=== PATIENT | female | born 1985 | race Caucasian/White ===

== ENCOUNTER 2022-03-26 07:33 | Emergency (ER) | payer OTHER, SELFPAY ==
--- NOTE | ~2022-03-26 | CT_ITS ---
EXAMINATION: CT HEAD WITHOUT CONTRAST CLINICAL INFORMATION: Syncope. COMPARISON: None TECHNIQUE: Contiguous axial imaging was performed from the skull base to vertex without intravenous administration of contrast. Coronal and sagittal reformatted images were obtained. This CT examination was performed using dose optimization techniques as appropriate, variously including the following: *Automated exposure control *Adjustment of mA and/or kV according to patient size (this includes techniques or standardized protocols for targeted exams where dose is matched to indication/reason for exam; i.e. extremities or head) *Use of iterative reconstruction technique DLP: 645 mGy-cm FINDINGS: The cortical sulci are normal. The lateral ventricles are symmetrical. The third and fourth ventricles are in their normal midline position. The basilar and prepontine cisterns are unremarkable. There is no acute intra or extracerebral abnormality. There is no mass effect or midline shift. Sections through the bony calvarium are unremarkable. The paranasal sinuses are clear. The bony orbits and orbital contents are unremarkable. CT/CT head/brain wo IV con IMPRESSION: No acute intracranial pathology.
--- NOTE | ~2022-03-26 | XR_ITS ---
EXAMINATION: XR CHEST CLINICAL INFORMATION: Chest pain COMPARISON: None TECHNIQUE: Frontal view of the chest was obtained. FINDINGS: No significant abnormality is noted involving the heart, lungs, mediastinum, bony thorax or soft tissues. XR/XR chest 1V IMPRESSION: Unremarkable examination.
--- NOTE | 2022-03-26 07:40 | ECG_ITS ---
Test Reason : SYNCOPE Blood Pressure : / mmHG Vent. Rate : 078 BPM Atrial Rate : 078 BPM P-R Int : 130 ms QRS Dur : 084 ms QT Int : 386 ms P-R-T Axes : 060 059 034 degrees QTc Int : 440 ms Normal sinus rhythm with sinus arrhythmia Normal ECG No previous ECGs available Referred By: Wilber Ortiz Electronically Signed By:TUCKER BENSON MD
[2022-03-26 07:41] VITALS: BP 101/66; BP 118/76; PULSE 85; PULSE 86; RESP 16; TEMP 36.9; O2SAT 96; O2SAT 98; BMI 27.1
--- NOTE | 2022-03-26 07:41 | ED_ITS ---
HPI - Syncope General Chief Complaint: Syncope Stated Complaint: dizziness, syncope Time Seen by Provider: 03/26/22 07:40 Source: patient Mode of arrival: EMS Limitations: no limitations History of Present Illness HPI narrative: This is a 36 years old female presented via ambulance after a syncopal episode. She has history of alcohol abuse she is recovering, she is in [facility], she got up this morning like a medicine for depression id she fell to the ground. No LOC she is awake and alert now he has no complaint at this time . She states that last night she took prazosin in the past she a problem with the prazosin which lower her blood pressure. complaint: loss of consciousness Onset (ago): hour(s) (2) Prodromal symptoms: lightheaded Injuries sustained associated with event: none Current symptoms: none Related Data Allergies Allergy/AdvReac Type Severity Reaction Status Date / Time No Known Allergies Allergy Unverified 01/02/20 19:49 [No Known Allergies*] Review of Systems Constitutional: Constitutional: Reports no additional constitutional complaints Eyes: Eyes: Reports no additional eye complaints Cardiovascular: Cardiovascular: Reports no additional cardiovascular complaints Respiratory: Respiratory: Reports no additional respiratory complaints Genitourinary: Genitourinary: Reports no additional female genitourinary complaints [facility] Past Medical History [facility] Narrative: Alcohol abuse Social History Social History Alcohol intake: former Smoked in Last 30 Days: Yes Advance Directives: No Advance Directives Information Provided: No Patient : No Physical Exam Vital Signs: Vital Signs: Last Vital Signs Temp 98.4 F 03/26/22 08:08 Pulse 90 03/26/22 09:40 Resp 18 03/26/22 09:40 BP 95/57 L 03/26/22 09:40 Pulse Ox 98 03/26/22 09:40 O2 Del Method 03/26/22 09:40 BMI result Body Mass Index 27.1 Const: General: cooperative, healthy appearing, comfortable, no acute distress, well developed, alert, awake and Physically active Nutritional Appearance: well nourished Orientation/consciousness: patient oriented x3 Limitations: no limitations HEENT: Head: Yes normal to inspection Ears: hearing grossly normal bilaterally General nose exam: Normal external nose present Face and sinus: Yes normal facial exam Mouth: Normal oral and palatal mucosa present Throat: Yes posterior oropharynx normal Neck: Neck: Yes normal visual inspection and Yes full ROM Chest: Chest palpation & inspection: normal inspection of the chest Resp: Effort & Inspection: normal respiratory effort Auscultation: clear to auscultation bilaterally Cardio: Jugular venous distension: no JVD Rate: regular rate Rhythm: regular rhythm GI: Inspection: Yes normal to inspection Palpation (GI): Soft to palpation, not firm, nontender and no guarding Auscultation: normal bowel sounds : General: Yes no CVA tenderness Back/Spine/Pelvis: Back: no CVA tenderness Skin: General skin exam: no rashes or lesions noted Lesions: no lesions Rashes: no rashes Neuro: General: patient oriented x3 Course Reevaluation(s) Reevaluation #1: Doing well no symptoms work negative including CT of the head, syncope is most likely related to the prazosin, shared decision making the patient she is comfortable to go home she will lower the the prazosin John, Medications Administered Discontinued Medications Generic Name Dose Route Start Last Admin Trade Name Freq PRN Reason Stop Dose Admin Sodium Chloride 1,000 mls @ 999 mls/hr 03/26/22 07:45 03/26/22 09:36 Ns IVCONT 03/26/22 08:45 Infused .Q1H1M ESTRELLITA Infusion Medical Decision Making Medical Decision Making [facility] Narrative: Healthy 36 years old female with the alcohol abuse history in recovery presented with a syncopal episode she is asymptomatic right now most likely this was due to prazosine, will get any way labs EKG reassessed Differential Diagnoses: Differential diagnosis (syncope/alcohol withdrawal/seizure) Consideration of admission/observation: Consideration of Admission/Observation (I consider admission for observation in telemetry because of the syncope but she is healthy lady negative troponin) Lab Attestation: I reviewed the patient's lab results. Independent interpretation of EKG, rhythm strip, radiology study: Independent interp EKG,rhythm strip, radiology study I performed an independent interpretation of the: EKG My interpretation is EGD reviewed by me normal sinus rhythm rate [address]-T changes Chronic conditions affecting care (e.g., diabetes, HTN): Chronic conditions affecting care (e.g., diabetes, HTN) Additional Comments: Alcohol use disorder Discharge Plan Discharge Clinical Impression: Vasovagal syncope Patient Disposition: Home, Self-Care Instructions: Syncope (ED) Additional Instructions: Drink plenty of fluids, hold the prazosin, return if you worse
[2022-03-26] MEDS: 0.9 % Sodium Chloride 1,000 ML 999 ML IVCONT (08:07)
[2022-03-26 08:08] VITALS: BP 101/66; PULSE 85; RESP 18; TEMP 36.9; O2SAT 98
[2022-03-26 08:09] LABS: MANUAL DIFF FLAG NO
[2022-03-26 08:10] LABS: Basophils Percent Auto 0.2 % (0-2); Eosinophils Absolute Auto 0.3 X10*3/uL (0.0-0.4); Hematocrit 37.5 % (37.0-47.0); Hemoglobin 12.2 g/dl (12.0-16.0); Imm Gran Abs Auto 0.01 X10*3/uL (0.00-0.03); Imm Gran Pct Auto 0.2 % (0.0-0.4); Lymphocytes Absolute Auto 2.2 X10*3/uL (1.2-4.9); Lymphocytes Percent Auto 46.4 % (20-40); Mean Corpuscular HGB Conc 32.5 g/dl (31.0-35.0); Mean Corpuscular Hemoglobin 29.9 pg (27.0-33.0); Mean Corpuscular Volume 91.9 fL (80.0-98.0); Mean Platelet Volume 9.2 fL (9.4-12.3); Monocytes Absolute Auto 0.5 X10*3/uL (0.1-1.2); Monocytes Percent Auto 9.5 % (2-11); Neutrophils Absolute Auto 1.8 x10*3/uL (2.0-8.3); Neutrophils Percent Auto 37.7 % (45-73); Platelet Count 246 X10*3/uL (160-400); Red Blood Count 4.08 X10*6/uL (4.20-5.50); Red Cell Distribution Width 12.6 % (11.0-16.0); White Blood Count 4.8 X10*3/uL (4.8-10.8)
--- NOTE | 2022-03-26 08:12 | PC.NURSE ---
patient a/ox4 . bull . heart rate regular 80 beats per minute . breathing even and unlabored . lungs clear throughout . skin pink warm and dry . abdomen soft not tender , positive bowel sounds throughout . IV placed in right A.C normal saline started as ordered by provider . labs obtained and sent . EKG obtained . patient on cargo bracer . patient denies any lightheadedness or dizziness at this time . presented to Ed after syncope episodes . reports she feels it was changing positions to fast , patient [facility] and was running late for medication pass and got out of bed fast . and feels like she is dehydrated due to medication and lack of hydration . patient is aware of plan of care .
[2022-03-26 08:22] LABS: COVID-19 Test Negative (Negative); IDNOW Serial# 16C4AD1C
[2022-03-26 08:26] LABS: IDNOW Serial# BCCEAD1C; Influenza A Negative (Negative); Influenza B2 Negative (Negative)
[2022-03-26 08:37] LABS: Troponin-I High Sensitivity < 3.5 ng/L (<3.5-17.0)
[2022-03-26 08:44] LABS: Alanine Aminotransferase 12 U/L (0-31); Albumin Level 3.8 g/dL (3.5-5.0); Alkaline Phosphatase 39 U/L (39-117); Anion Gap 11 (12-20); Aspartate Amino Transferase 16 U/L (5-31); Bilirubin Total 0.3 mg/dL (0.0-1.0); Blood Urea Nitrogen 9 mg/dL (9-16); Carbon Dioxide 24 mmol/L (22-29); Chloride 108 mmol/L (96-108); Creatinine Clr Calc Pharmacy 93.7; Estimated Glomerular Filt Rate > 60; Glucose Random 95 mg/dL (60-115); HCG Quantitative < 2 mIU/mL; Potassium 4.2 mmol/L (3.3-5.1); Sodium 139 mmol/L (135-145)
[2022-03-26 09:40] VITALS: BP 95/57; PULSE 90; RESP 18; O2SAT 98
--- NOTE | 2022-03-26 09:42 | PC.NURSE ---
Patient a/ox4 . finished 1liter normal saline as ordered . VSS hypotensive at 95/57 . is asymptomatic . denies any dizziness or lightheadness . Provider Dr. Ortiz aware . Will order another liter of normal saline to be administered . patient aware of plan of care .
[2022-03-26] MEDS: 0.9 % Sodium Chloride 1,000 ML 999 ML IV (10:30)
[2022-03-26 11:56] VITALS: BP 112/73; PULSE 90; RESP 20; O2SAT 99
--- NOTE | 2022-03-26 12:07 | PC.NURSE ---
patient a/o x4 . VSS . went over discharge instructions as ordered by provider . patient given contact information to obtain a primary care .patient to return if symptoms worsen . no questions at this time .
== END 2022-03-26 12:11 | disposition home or self-care (01) ==
PROVIDERS: Emergency Provider Emergency Medicine
DX: R55 Syncope and collapse (principal); Z20.822 Contact with and (suspected) exposure to COVID-19; F10.10 Alcohol abuse, uncomplicated; Y90.9 Presence of alcohol in blood, level not specified; E11.9 Type 2 diabetes mellitus without complications; I10 Essential (primary) hypertension; Z79.899 Other long term (current) drug therapy
CPT/HCPCS: 70450; 71045; 80053; 84484; 84702; 85025; 87502; 87635; 93005; 96360; 96361; 99284; 99285

== ENCOUNTER 2022-07-29 15:37 | Emergency (ER) | payer MEDICAID, SELFPAY ==
--- NOTE | ~2022-07-29 | XR_ITS ---
EXAMINATION: XR CHEST CLINICAL INFORMATION: Dizziness COMPARISON: 03/26/2022 TECHNIQUE: 2 views of the chest were obtained. FINDINGS: Some new minimal atelectasis is present in the lingula. No other significant abnormality is noted involving the heart, lungs, mediastinum, bony thorax or soft tissues. XR/XR chest 2V IMPRESSION: No acute intrathoracic disease. Lingular atelectasis.
--- NOTE | ~2022-07-29 | CT_ITS ---
EXAMINATION: CT HEAD WITHOUT CONTRAST CLINICAL INFORMATION: Dizziness COMPARISON: CT 03/26/2022. TECHNIQUE: Contiguous axial imaging was performed from the skull base to vertex without intravenous administration of contrast. This CT examination was performed using dose optimization techniques as appropriate, variously including the following: *Automated exposure control *Adjustment of mA and/or kV according to patient size (this includes techniques or standardized protocols for targeted exams where dose is matched to indication/reason for exam; i.e. extremities or head) *Use of iterative reconstruction technique DLP: 598 mGy-cm FINDINGS: There is no evidence of acute intracranial hemorrhage or territorial infarction. No abnormal mass effect or midline shift is seen. [place] to white matter differentiation is well preserved. No extra-axial fluid collections are identified. The ventricles are normal in size. No abnormal attenuation in the brain parenchyma. No acute calvarial fracture.. Right maxillary sinus partial opacification and fluid. Remainder of the paranasal sinuses and mastoid air cells are well-aerated. CT/CT head/brain wo IV con IMPRESSION: No CT evidence of acute intracranial hemorrhage or edematous territorial infarction.
--- NOTE | 2022-07-29 15:42 | ECG_ITS ---
Test Reason : PALPITATIONS Blood Pressure : / mmHG Vent. Rate : 108 BPM Atrial Rate : 108 BPM P-R Int : 116 ms QRS Dur : 072 ms QT Int : 324 ms P-R-T Axes : 072 073 032 degrees QTc Int : 434 ms Sinus tachycardia Possible Left atrial enlargement Borderline ECG When compared with ECG of 26-MAR-2022 07:48, No significant change was found Referred By: Generic ED Physician Electronically Signed By:TUCKER BENSON MD
[2022-07-29 16:10] VITALS: BP 126/81; PULSE 112; RESP 16; TEMP 36.4; O2SAT 98; BMI 26.5
--- NOTE | 2022-07-29 18:29 | ED_ITS ---
HPI - General Adult General Chief complaint: Dizziness <NATALIE Velazquez - Last Filed: 07/29/22 18:29> Stated complaint: Dizziness/Palpitations <NATALIE Velazquez - Last Filed: 07/29/22 18:29> Time Seen by Provider: 07/29/22 22:23 <NATALIE Velazquez - Last Filed: 07/29/22 18:29> Source: patient <Yonis Larson MD - Last Filed: 07/30/22 07:13> Mode of arrival: ambulatory <Yonis Larson MD - Last Filed: 07/30/22 07:13> Limitations: no limitations <Yonis Larson MD - Last Filed: 07/30/22 07:13> History of Present Illness HPI narrative: History of dizziness/lightheadedness episodes patient is standing for last 1 year off and on got worse in last 2 weeks patient also depression anxiety does not feel dizzy and anxious at this time earlier prior to arrival patient noticed her heart was beating fast when she was standing <Yonis Larson MD - Last Filed: 07/30/22 07:13> Related Data Home medications: Previous Rx's Medication Instructions Recorded metoprolol tartrate 25 mg tablet 12.5 mg PO BID #30 tabs 07/29/22 <NATALIE Velazquez - Last Filed: 07/29/22 18:29> Allergies/adverse reactions: Allergies Allergy/AdvReac Type Severity Reaction Status Date / Time No Known Allergies Allergy Verified 07/29/22 16:12 [No Known Allergies*] <NATALIE Velazquez - Last Filed: 07/29/22 18:29> Review of Systems 2 Review of Systems: Yes all other systems are reviewed and are negative <Yonis Larson MD - Last Filed: 07/30/22 07:13> [facility] Social History Social History: Social History Alcohol intake: former Advance Directives: No Advance Directives Information Provided: No <NATALIE Velazquez - Last Filed: 07/29/22 18:29> Physical Exam ED Vital Signs: Vital Signs - 24 hr 07/29/22 16:10 07/29/22 22:48 07/29/22 23:01 Temperature 97.6 F 98 F Pulse Rate 112 H 95 95 Respiratory Rate 16 18 Blood Pressure 126/81 122/74 122/74 Pulse Oximetry 98 98 Oxygen Delivery Method Room Air Room Air 07/29/22 23:03 07/29/22 23:03 Temperature Pulse Rate 121 H 118 H Respiratory Rate Blood Pressure 117/85 117/88 Pulse Oximetry Oxygen Delivery Method BMI result Body Mass Index 26.5 <NATALIE Velazquez - Last Filed: 07/29/22 18:29> Vital Signs - 24 hr 07/29/22 16:10 07/29/22 22:48 07/29/22 23:01 Temperature 97.6 F 98 F Pulse Rate 112 H 95 95 Respiratory Rate 16 18 Blood Pressure 126/81 122/74 122/74 Pulse Oximetry 98 98 Oxygen Delivery Method Room Air Room Air 07/29/22 23:03 07/29/22 23:03 Temperature Pulse Rate 121 H 118 H Respiratory Rate Blood Pressure 117/85 117/88 Pulse Oximetry Oxygen Delivery Method BMI result Body Mass Index 26.5 <Yonis Larson MD - Last Filed: 07/30/22 07:13> Appearance: Alert. Oriented X3. No acute distress. Eyes: No pallor or icterus ENT: Pharynx normal. Oral Mucosa moist Neck: Normal inspection. Neck supple. CVS: Normal heart rate and rhythm. No murmur/rub or gallop Pulses normal. Respiratory: No respiratory distress. Equal air entry bilateral, no wheezing/rales/rhonchi Abdomen: Soft and nontender. Bowel sounds are present, no mass palpable, no CVA tenderness Skin: Skin warm and dry. Normal skin color. Normal skin turgor. Extremities: No lower extremity edema. No calf tenderness Neuro: Oriented X 3. No motor deficit. No sensory deficit.No cerebellar signs , cranial nerves II-XII intact <Yonis Larson MD - Last Filed: 07/30/22 07:13> Course Course Course Narrative: RME performed by Adriana Roldan PA-C. Patient is a 36 year old assigned female at presenting to the emergency department with dizziness and heart racing. Patient states that this has been going on for 2 weeks and she is currently tapering her antidepressant down. Labs and imaging ordered. Patient placed back in the waiting room pending room availability and results. <NATALIE Velazquez - Last Filed: 07/29/22 18:29> Medications Administered Discontinued Medications Generic Name Dose Route Start Last Admin Trade Name Freq PRN Reason Stop Dose Admin Metoprolol Tartrate 12.5 mg 07/29/22 22:53 07/29/22 23:12 Metoprolol Tartrate 12.5 Mg Halftab PO 07/29/22 22:54 12.5 mg ONCE ONE Administration Protocol <NATALIE Velazquez - Last Filed: 07/29/22 18:29> Medications Administered Discontinued Medications Generic Name Dose Route Start Last Admin Trade Name Freq PRN Reason Stop Dose Admin Metoprolol Tartrate 12.5 mg 07/29/22 22:53 07/29/22 23:12 Metoprolol Tartrate 12.5 Mg Halftab PO 07/29/22 22:54 12.5 mg ONCE ONE Administration Protocol <Yonis Larson MD - Last Filed: 07/30/22 07:13> Medical Decision Making Medical Decision Making MDM Narrative: Patient clinically has POTS syndrome with transient increase in heart rate but blood pressure stays stable. Patient was given Lopressor 12.5 mg and advised to increase fluid intake <Yonis Larson MD - Last Filed: 07/30/22 07:13> Lab Data [facility] Lab Attestation statement: I reviewed the patient's lab results. <Yonis Larson MD - Last Filed: 07/30/22 07:13> Result Diagrams: 07/29/22 18:48 07/29/22 18:48 <NATALIE Velazquez - Last Filed: 07/29/22 18:29> Labs: Lab Results 07/29/22 07/29/22 07/29/22 Range/Units 18:48 18:48 18:48 WBC 6.9 (4.8-10.8) X10*3/uL RBC 4.19 L (4.20-5.50) X10*6/uL Hgb 12.4 (12.0-16.0) g/dl Hct 37.5 (37.0-47.0) % MCV 89.5 (80.0-98.0) fL MCH 29.6 (27.0-33.0) pg MCHC 33.1 (31.0-35.0) g/dl RDW 12.3 (11.0-16.0) % Plt Count 308 D (160-400) X10*3/uL MPV 8.9 L (9.4-12.3) fL Immature Gran % (Auto) 0.1 (0.0-0.4) % Neut % (Auto) 49.7 (45-73) % Lymph % (Auto) 39.0 (20-40) % [place] % (Auto) 9.3 (2-11) % Eos % (Auto) 1.5 (0-4) % Baso % (Auto) 0.4 (0-2) % Lymph # (Auto) 2.7 (1.2-4.9) X10*3/uL [place] # (Auto) 0.6 (0.1-1.2) X10*3/uL Eos # (Auto) 0.1 (0.0-0.4) X10*3/uL Baso # (Auto) 0.0 (0.0-0.2) X10*3/uL Abs Immat Gran (auto) 0.01 (0.00-0.03) X10*3/uL Absolute Neuts (auto) 3.4 (2.0-8.3) x10*3/uL Absolute Nucleated RBC 0.000 (0.0-0.012) X10*3/uL Nucleated RBC % (auto) 0.0 (0.0-0.2) /100WBC Sodium 142 (135-145) mmol/L Potassium 3.9 (3.3-5.1) mmol/L Chloride 108 (96-108) mmol/L Carbon Dioxide 27 (22-29) mmol/L Anion Gap 11 L (12-20) BUN 14 (9-16) mg/dL Creatinine 0.77 (0.5-1.4) mg/dL Estim Creat Clear Calc 95.3 Estimated GFR > 60 Random Glucose 91 (60-115) mg/dL Calcium 8.8 (8.4-10.2) mg/dL Magnesium 2.0 (1.6-2.6) mg/dL Total Bilirubin 0.3 (0.0-1.0) mg/dL AST 14 (5-31) U/L ALT 13 (0-31) U/L Alkaline Phosphatase 53 (39-117) U/L Total Protein 6.4 L (6.5-8.0) g/dL Albumin 4.1 (3.5-5.0) g/dL Urine Color Urine Appearance Urine pH (5.0-9.0) Ur Specific [place] (1.005-1.025) Urine Protein (Neg-Trace) mg/dL Urine Glucose (UA) (Negative) mg/dL Urine Ketones (Negative) mg/dL Urine Blood (Negative) Urine Nitrite (Negative) Ur Leukocyte Esterase (Negative) Urine Test (NEGATIVE) COVID-19 ([facility]) Negative (Negative) COVID-19 Clin Com See Note 07/29/22 07/29/22 Range/Units 22:59 22:59 WBC (4.8-10.8) X10*3/uL RBC (4.20-5.50) X10*6/uL Hgb (12.0-16.0) g/dl Hct (37.0-47.0) % MCV (80.0-98.0) fL MCH (27.0-33.0) pg MCHC (31.0-35.0) g/dl RDW (11.0-16.0) % Plt Count (160-400) X10*3/uL MPV (9.4-12.3) fL Immature Gran % (Auto) (0.0-0.4) % Neut % (Auto) (45-73) % Lymph % (Auto) (20-40) % [place] % (Auto) (2-11) % Eos % (Auto) (0-4) % Baso % (Auto) (0-2) % Lymph # (Auto) (1.2-4.9) X10*3/uL [place] # (Auto) (0.1-1.2) X10*3/uL Eos # (Auto) (0.0-0.4) X10*3/uL Baso # (Auto) (0.0-0.2) X10*3/uL Abs Immat Gran (auto) (0.00-0.03) X10*3/uL Absolute Neuts (auto) (2.0-8.3) x10*3/uL Absolute Nucleated RBC (0.0-0.012) X10*3/uL Nucleated RBC % (auto) (0.0-0.2) /100WBC Sodium (135-145) mmol/L Potassium (3.3-5.1) mmol/L Chloride (96-108) mmol/L Carbon Dioxide (22-29) mmol/L Anion Gap (12-20) BUN (9-16) mg/dL Creatinine (0.5-1.4) mg/dL Estim Creat Clear Calc Estimated GFR Random Glucose (60-115) mg/dL Calcium (8.4-10.2) mg/dL Magnesium (1.6-2.6) mg/dL Total Bilirubin (0.0-1.0) mg/dL AST (5-31) U/L ALT (0-31) U/L Alkaline Phosphatase (39-117) U/L Total Protein (6.5-8.0) g/dL Albumin (3.5-5.0) g/dL Urine Color Yellow Urine Appearance Clear Urine pH 6.5 (5.0-9.0) Ur Specific [place] <= 1.005 (1.005-1.025) Urine Protein Negative (Neg-Trace) mg/dL Urine Glucose (UA) Negative (Negative) mg/dL Urine Ketones Negative (Negative) mg/dL Urine Blood Negative (Negative) Urine Nitrite Negative (Negative) Ur Leukocyte Esterase Negative (Negative) Urine Test NEGATIVE (NEGATIVE) COVID-19 ([facility]) (Negative) COVID-19 Clin Com <NATALIE Velazquez - Last Filed: 07/29/22 18:29> Lab Results 07/29/22 07/29/22 07/29/22 Range/Units 18:48 18:48 18:48 WBC 6.9 (4.8-10.8) X10*3/uL RBC 4.19 L (4.20-5.50) X10*6/uL Hgb 12.4 (12.0-16.0) g/dl Hct 37.5 (37.0-47.0) % MCV 89.5 (80.0-98.0) fL MCH 29.6 (27.0-33.0) pg MCHC 33.1 (31.0-35.0) g/dl RDW 12.3 (11.0-16.0) % Plt Count 308 D (160-400) X10*3/uL MPV 8.9 L (9.4-12.3) fL Immature Gran % (Auto) 0.1 (0.0-0.4) % Neut % (Auto) 49.7 (45-73) % Lymph % (Auto) 39.0 (20-40) % [place] % (Auto) 9.3 (2-11) % Eos % (Auto) 1.5 (0-4) % Baso % (Auto) 0.4 (0-2) % Lymph # (Auto) 2.7 (1.2-4.9) X10*3/uL [place] # (Auto) 0.6 (0.1-1.2) X10*3/uL Eos # (Auto) 0.1 (0.0-0.4) X10*3/uL Baso # (Auto) 0.0 (0.0-0.2) X10*3/uL Abs Immat Gran (auto) 0.01 (0.00-0.03) X10*3/uL Absolute Neuts (auto) 3.4 (2.0-8.3) x10*3/uL Absolute Nucleated RBC 0.000 (0.0-0.012) X10*3/uL Nucleated RBC % (auto) 0.0 (0.0-0.2) /100WBC Sodium 142 (135-145) mmol/L Potassium 3.9 (3.3-5.1) mmol/L Chloride 108 (96-108) mmol/L Carbon Dioxide 27 (22-29) mmol/L Anion Gap 11 L (12-20) BUN 14 (9-16) mg/dL Creatinine 0.77 (0.5-1.4) mg/dL Estim Creat Clear Calc 95.3 Estimated GFR > 60 Random Glucose 91 (60-115) mg/dL Calcium 8.8 (8.4-10.2) mg/dL Magnesium 2.0 (1.6-2.6) mg/dL Total Bilirubin 0.3 (0.0-1.0) mg/dL AST 14 (5-31) U/L ALT 13 (0-31) U/L Alkaline Phosphatase 53 (39-117) U/L Total Protein 6.4 L (6.5-8.0) g/dL Albumin 4.1 (3.5-5.0) g/dL Urine Color Urine Appearance Urine pH (5.0-9.0) Ur Specific [place] (1.005-1.025) Urine Protein (Neg-Trace) mg/dL Urine Glucose (UA) (Negative) mg/dL Urine Ketones (Negative) mg/dL Urine Blood (Negative) Urine Nitrite (Negative) Ur Leukocyte Esterase (Negative) Urine Test (NEGATIVE) COVID-19 ([facility]) Negative (Negative) COVID-19 Clin Com See Note 07/29/22 07/29/22 Range/Units 22:59 22:59 WBC (4.8-10.8) X10*3/uL RBC (4.20-5.50) X10*6/uL Hgb (12.0-16.0) g/dl Hct (37.0-47.0) % MCV (80.0-98.0) fL MCH (27.0-33.0) pg MCHC (31.0-35.0) g/dl RDW (11.0-16.0) % Plt Count (160-400) X10*3/uL MPV (9.4-12.3) fL Immature Gran % (Auto) (0.0-0.4) % Neut % (Auto) (45-73) % Lymph % (Auto) (20-40) % [place] % (Auto) (2-11) % Eos % (Auto) (0-4) % Baso % (Auto) (0-2) % Lymph # (Auto) (1.2-4.9) X10*3/uL [place] # (Auto) (0.1-1.2) X10*3/uL Eos # (Auto) (0.0-0.4) X10*3/uL Baso # (Auto) (0.0-0.2) X10*3/uL Abs Immat Gran (auto) (0.00-0.03) X10*3/uL Absolute Neuts (auto) (2.0-8.3) x10*3/uL Absolute Nucleated RBC (0.0-0.012) X10*3/uL Nucleated RBC % (auto) (0.0-0.2) /100WBC Sodium (135-145) mmol/L Potassium (3.3-5.1) mmol/L Chloride (96-108) mmol/L Carbon Dioxide (22-29) mmol/L Anion Gap (12-20) BUN (9-16) mg/dL Creatinine (0.5-1.4) mg/dL Estim Creat Clear Calc Estimated GFR Random Glucose (60-115) mg/dL Calcium (8.4-10.2) mg/dL Magnesium (1.6-2.6) mg/dL Total Bilirubin (0.0-1.0) mg/dL AST (5-31) U/L ALT (0-31) U/L Alkaline Phosphatase (39-117) U/L Total Protein (6.5-8.0) g/dL Albumin (3.5-5.0) g/dL Urine Color Yellow Urine Appearance Clear Urine pH 6.5 (5.0-9.0) Ur Specific [place] <= 1.005 (1.005-1.025) Urine Protein Negative (Neg-Trace) mg/dL Urine Glucose (UA) Negative (Negative) mg/dL Urine Ketones Negative (Negative) mg/dL Urine Blood Negative (Negative) Urine Nitrite Negative (Negative) Ur Leukocyte Esterase Negative (Negative) Urine Test NEGATIVE (NEGATIVE) COVID-19 ([facility]) (Negative) COVID-19 Clin Com <Yonis Larson MD - Last Filed: 07/30/22 07:13> Independent Interpretation I performed an independent interpretation of an: EKG <Yonis Larson MD - Last Filed: 07/30/22 07:13> Interpretation: Sinus tachycardia heart rate 108 normal interval normal axis no acute ST T wave changes no acute ischemic <Yonis Larson MD - Last Filed: 07/30/22 07:13> Discharge Plan Discharge Clinical Impression: POTS (postural orthostatic tachycardia syndrome) <NATALIE Velazquez - Last Filed: 07/29/22 18:29> Patient Disposition: Home, Self-Care <NATALIE Velazquez - Last Filed: 07/29/22 18:29> Instructions: Tachycardia (ED) <NATALIE Velazquez - Last Filed: 07/29/22 18:29> Additional Instructions: Drink plenty of fluids Lopressor 12.5 mg tablet once or twice daily as needed Follow-up with your PCP Check your heart rate daily before taking the medicine Avoid caffeinated drinks <NATALIE Velazquez - Last Filed: 07/29/22 18:29> Prescriptions: New metoprolol tartrate 25 mg tablet 12.5 mg PO BID Qty: 30 0RF <NATALIE Velazquez - Last Filed: 07/29/22 18:29> Interventions: ED Discharge Assessment Last Done: 07/29/22 23:54 <NATALIE Velazquez - Last Filed: 07/29/22 18:29> Discharge Date/Time: 07/29/22 23:54 <NATALIE Velazquez - Last Filed: 07/29/22 18:29>
[2022-07-29 18:52] LABS: MANUAL DIFF FLAG NO
[2022-07-29 19:05] LABS: Basophils Percent Auto 0.4 % (0-2); Eosinophils Absolute Auto 0.1 X10*3/uL (0.0-0.4); Eosinophils Percent Auto 1.5 % (0-4); Hematocrit 37.5 % (37.0-47.0); Hemoglobin 12.4 g/dl (12.0-16.0); Imm Gran Abs Auto 0.01 X10*3/uL (0.00-0.03); Imm Gran Pct Auto 0.1 % (0.0-0.4); Lymphocytes Absolute Auto 2.7 X10*3/uL (1.2-4.9); Mean Corpuscular HGB Conc 33.1 g/dl (31.0-35.0); Mean Corpuscular Hemoglobin 29.6 pg (27.0-33.0); Mean Corpuscular Volume 89.5 fL (80.0-98.0); Mean Platelet Volume 8.9 fL (9.4-12.3); Monocytes Absolute Auto 0.6 X10*3/uL (0.1-1.2); Monocytes Percent Auto 9.3 % (2-11); Neutrophils Absolute Auto 3.4 x10*3/uL (2.0-8.3); Neutrophils Percent Auto 49.7 % (45-73); Platelet Count 308 X10*3/uL (160-400); Red Blood Count 4.19 X10*6/uL (4.20-5.50); Red Cell Distribution Width 12.3 % (11.0-16.0); White Blood Count 6.9 X10*3/uL (4.8-10.8)
[2022-07-29 19:10] LABS: COVID-19 Test Negative (Negative); IDNOW Serial# 08D9AD1C
[2022-07-29 19:12] LABS: Alanine Aminotransferase 13 U/L (0-31); Albumin Level 4.1 g/dL (3.5-5.0); Alkaline Phosphatase 53 U/L (39-117); Anion Gap 11 (12-20); Aspartate Amino Transferase 14 U/L (5-31); Bilirubin Total 0.3 mg/dL (0.0-1.0); Blood Urea Nitrogen 14 mg/dL (9-16); Calcium 8.8 mg/dL (8.4-10.2); Carbon Dioxide 27 mmol/L (22-29); Chloride 108 mmol/L (96-108); Creatinine Clr Calc Pharmacy 95.3; Estimated Glomerular Filt Rate > 60; Glucose Random 91 mg/dL (60-115); Potassium 3.9 mmol/L (3.3-5.1); Sodium 142 mmol/L (135-145); Total Protein 6.4 g/dL (6.5-8.0)
[2022-07-29 22:48] VITALS: BP 122/74; PULSE 95; RESP 18; TEMP 36.6; O2SAT 98
[2022-07-29 23:01] VITALS: BP 122/74; PULSE 95
[2022-07-29 23:03] VITALS: BP 117/85; BP 117/88; PULSE 118; PULSE 121
[2022-07-29 23:08] LABS: Appearance Urine Clear; Color Urine Yellow; Glucose Urine UA Negative (Negative); Leukocyte Esterase Urine Negative (Negative); Nitrite Urine Negative (Negative); PH 6.5 (5.0-9.0); Specific Gravity - Urine <= 1.005 (1.005-1.025); Urine Blood Negative (Negative); Urine Ketones Negative (Negative); Urine Protein Negative (Neg-Trace)
[2022-07-29 23:10] LABS: UPreg QC Valid YES; Urine Pregnancy NEGATIVE (NEGATIVE)
[2022-07-29] MEDS: Metoprolol Tartrate 12.5 MG HALFTAB PO (23:12)
== END 2022-07-29 23:54 | disposition home or self-care (01) ==
PROVIDERS: Physician Assistant Medical; Emergency Provider Internal Medicine
DX: G90.A Postural orthostatic tachycardia syndrome [POTS] (principal); F32.A Depression, unspecified; F41.9 Anxiety disorder, unspecified; Z20.822 Contact with and (suspected) exposure to COVID-19; Z79.899 Other long term (current) drug therapy
CPT/HCPCS: 70450; 71046; 80053; 81003; 81025; 83735; 85025; 87635; 93005; 99284

== ENCOUNTER 2023-05-20 13:01 | Emergency (ER) | payer OTHER, SELFPAY ==
--- NOTE | ~2023-05-20 | XR_ITS ---
EXAMINATION: XR CHEST CLINICAL INFORMATION: Chest pain COMPARISON: Previous chest x-ray most recent July 2022 TECHNIQUE: 2 views of the chest were obtained. FINDINGS: No significant abnormality is noted involving the heart, lungs, mediastinum, bony thorax or soft tissues. XR/XR chest 2V IMPRESSION: Unremarkable examination.
--- NOTE | 2023-05-20 13:03 | ECG_ITS ---
Test Reason : cp Blood Pressure : / mmHG Vent. Rate : 090 BPM Atrial Rate : 090 BPM P-R Int : 114 ms QRS Dur : 076 ms QT Int : 342 ms P-R-T Axes : 061 040 026 degrees QTc Int : 418 ms Normal sinus rhythm Cannot rule out Anterior infarct , age undetermined Abnormal ECG When compared with ECG of 29-JUL-2022 16:05, No significant change was found Referred By: Mai Kuo Electronically Signed By:TUCKER BENSON MD
[2023-05-20 13:27] VITALS: BP 124/88; PULSE 98; RESP 16; TEMP 36.7; O2SAT 98; BMI 30.3
--- NOTE | 2023-05-20 13:27 | ED.GENADULT ---
HPI - General Adult General Chief complaint: Chest Pain Stated complaint: chest and upper abd pain Time Seen by Provider: 05/20/23 14:23 Source: patient Mode of arrival: ambulatory Limitations: no limitations History of Present Illness HPI narrative: Patient is a 37-year-old female presenting to the emergency department with complaint of epigastric and chest pain. Fevers and Monday, none today. Reports shortness of breath, worse with exertion. Nonproductive cough. Reports nausea and dry heaving. Denies abdominal pain or diarrhea. Taking ibuprofen and Tylenol. complaint: chest and abdominal pain Onset (ago): day(s) Location: chest and abdomen Severity: moderate Severity scale (1-10): 5 Quality: burning Pain Consistency: colicky Relieving factors: none Exacerbating factors: none Associated symptoms: cough, fever/chills and nausea/vomiting Treatments prior to arrival: NSAID Related Data Previous Rx's Medication Instructions Recorded metoprolol tartrate 25 mg tablet 12.5 mg (1/2 x 25 mg) PO BID #30 07/29/22 tabs Allergies Allergy/AdvReac Type Severity Reaction Status Date / Time No Known Allergies Allergy Verified 05/20/23 13:31 [No Known Allergies*] Review of Systems Review of Systems: As per HPI. Yes all other systems are reviewed and are negative Constitutional: Constitutional: Reports as per HPI [facility] Social History Social History Alcohol intake: former Physical Exam ED Vital Signs: Vital Signs - 24 hr 05/20/23 13:27 Temperature 98.1 F Pulse Rate 98 Respiratory Rate 16 Blood Pressure 124/88 Pulse Oximetry 98 Oxygen Delivery Method Room Air BMI result Body Mass Index 30.3 Vital signs have been reviewed and appear to be correct. Blood pressure normal. Heart rate normal. Respiratory rate normal. Temperature normal. Oxygen saturation normal. Const General: cooperative, healthy appearing and no acute distress Orientation/consciousness: oriented to person, oriented to place, oriented to time and patient oriented x3 Limitations: no limitations HENMT Head: Yes normocephalic and Yes atraumatic Ears: external ears normal General nose exam: Normal external nose present Face and sinus: Yes face symmetric Mouth: oropharynx normal and moist mucous membranes Throat: Yes uvula midline Eyes Pupils: Equal, round and reactive pupils present Neck Neck: Yes normal visual inspection and Yes supple Resp Effort & Inspection: normal respiratory effort and able to speak in complete sentences Auscultation: clear to auscultation bilaterally Cardio Rate: regular rate Rhythm: regular rhythm Heart sounds: S1 normal heart sound present and S2 normal heart sound present GI Palpation (GI): Soft to palpation and nontender Auscultation: normoactive bowel sounds General: Yes no CVA tenderness Back/Spine/Pelvis Back: no CVA tenderness Skin General skin exam: elasticity normal and turgor normal Neuro General: oriented to person, oriented to place, oriented to time, patient oriented x3, moves all extremities, no focal motor deficits and CN's II-XI intact bilaterally Cranial nerves: Yes Equal, round and reactive pupils present Cognition (Neuro): normal cognition Extrem General: Yes full ROM, Yes no pedal edema and Yes no calf tenderness Psych Mental Status: mental status grossly normal Affect: normal affect Thought process: Normal thought process present Course Course Course Narrative: This is a rapid medical exam: Additional HPI, ROS, PE not included below will be deferred to primary provider. Patient is a 37-year-old female presenting to the emergency department with complaint of epigastric and chest pain. Fevers and Monday, none today. States feels like the wind has been knocked out of me. Reports nausea and dry heaving. Taking ibuprofen and Tylenol. Plan: EKG, labs, UA, viral swabs Medical Decision Making Medical Decision Making MDM Narrative: Patient is a 37-year-old female presenting to the emergency department with complaint of epigastric and chest pain. On exam patient is awake, A+Ox3, VS WNL, afebrile, normal neurological exam without focal deficits, physical exam findings as above. Given reported symptoms and physical exam findings, initial differential includes viral illness, Covid, flu, GERD, PUD, gastritis. Unlikely ACS but will check EKG and troponin. Labs notable for negative troponin, no other significant abnormalities. Flu swab positive for influenza A. X-ray chest notable for no evidence of pneumonia. My interpretation is in agreement with the radiologist's interpretation. Results discussed with patient, all questions answered. Discussed treatment with Tamiflu which patient declined. Return precautions discussed. Advised patient to continue using Tylenol and ibuprofen as needed for fever/discomfort. Ensure adequate rest and adequate fluid intake, and isolate at home for another 3 days. Patient verbalized understanding of and agreement with plan. Differential Diagnosis Differential Diagnoses: The differential diagnosis associated with the presentation includes As per [facility] Admission/Observation Consideration of admission/observation: Escalation of care including admission/observation considered Lab Data [facility] Lab Attestation statement: I reviewed the patient's lab results. As per [facility] 05/20/23 13:35 05/20/23 13:35 Labs: Lab Results 05/20/23 Range/Units 13:35 WBC 3.8 L (4.8-10.8) X10*3/uL RBC 4.37 (4.20-5.50) X10*6/uL Hgb 13.4 (12.0-16.0) g/dl Hct 40.0 (37.0-47.0) % MCV 91.5 (80.0-98.0) fL MCH 30.7 (27.0-33.0) pg MCHC 33.5 (31.0-35.0) g/dl RDW 12.4 (11.0-16.0) % Plt Count 232 (160-400) X10*3/uL MPV 9.3 L (9.4-12.3) fL Immature Gran % (Auto) 0.0 (0.0-0.4) % Neut % (Auto) 49.7 (45-73) % Lymph % (Auto) 34.6 (20-40) % Caldwell % (Auto) 14.4 H (2-11) % Eos % (Auto) 1.3 (0-4) % Baso % (Auto) 0.0 (0-2) % Lymph # (Auto) 1.3 (1.2-4.9) X10*3/uL Caldwell # (Auto) 0.6 (0.1-1.2) X10*3/uL Eos # (Auto) 0.1 (0.0-0.4) X10*3/uL Baso # (Auto) 0.0 (0.0-0.2) X10*3/uL Abs Immat Gran (auto) 0.00 (0.00-0.03) X10*3/uL Absolute Neuts (auto) 1.9 L (2.0-8.3) x10*3/uL Absolute Nucleated RBC 0.000 (0.0-0.012) X10*3/uL Nucleated RBC % (auto) 0.0 (0.0-0.2) /100WBC PT 12.3 (11.1-13.3) SEC INR 1.0 (0.9-1.1) Sodium 141 (135-145) mmol/L Potassium 3.6 (3.3-5.1) mmol/L Chloride 108 (96-108) mmol/L Carbon Dioxide 27 (22-29) mmol/L Anion Gap 10 L (12-20) BUN 10 (9-16) mg/dL Creatinine 0.76 (0.5-1.4) mg/dL Estim Creat Clear Calc 98.0 Estimated GFR > 60 Random Glucose 95 (60-115) mg/dL Calcium 9.1 (8.4-10.2) mg/dL Total Bilirubin 0.2 (0.0-1.0) mg/dL AST 21 (5-31) U/L ALT 28 (0-31) U/L Alkaline Phosphatase 46 (39-117) U/L Troponin I High Sens < 2.7 (<3.5-17.0) ng/L Total Protein 7.1 (6.5-8.0) g/dL Albumin 4.2 (3.5-5.0) g/dL Beta HCG, Quant < 2 mIU/mL COVID-19 (KADEN) Negative (Negative) COVID-19 Clin Com See Note Influenza Type A (JORDAN) Positive A (Negative) Influenza Type B (JORDAN) Negative (Negative) Influenza A & B Note See Note Independent Interpretation I performed an independent interpretation of an: EKG (normal sinus rhythm, rate 90bpm, normal MD interval and QTc) and Plain X-Ray Interpretation: No evidence of pneumonia on x-ray Radiology Impression Discussion of test interpretation with radiology: I have reviewed the radiologist's reading. Radiologist Impression: XR/XR chest 2V IMPRESSION: Unremarkable examination. External Record Review External record reviewed: Inpatient record, Office record and Outpatient record Prescription Management I considered prescription management with: Antiviral (patient declined) Discharge Plan Discharge Clinical Impression: Influenza A Patient Disposition: Home, Self-Care Instructions: Influenza (DC), Droplet Precautions (ED) Additional Instructions: You were evaluated in the emergency department today for abdominal and chest pain. Your flu test was positive. You should isolate at home for another 3 days and continue to wear a mask while symptomatic after that. Your symptoms should resolve over time with rest and fluids. You can take 650 mg Tylenol or 600 mg ibuprofen every 6 hours as needed for fever or pain. Please follow-up with your primary care provider for any ongoing symptoms. Return to the emergency department if you develop worsening pain, fever not controlled with Tylenol and ibuprofen, chest pain, dizziness or lightheadedness, or any other concerning symptoms. Prescriptions: No Action metoprolol tartrate 25 mg tablet 12.5 mg PO BID Qty: 30 0RF Stand Alone Forms: Work/School Release
[2023-05-20 13:39] LABS: MANUAL DIFF FLAG NO
[2023-05-20 13:41] LABS: Eosinophils Absolute Auto 0.1 X10*3/uL (0.0-0.4); Eosinophils Percent Auto 1.3 % (0-4); Hemoglobin 13.4 g/dl (12.0-16.0); Lymphocytes Absolute Auto 1.3 X10*3/uL (1.2-4.9); Lymphocytes Percent Auto 34.6 % (20-40); Mean Corpuscular HGB Conc 33.5 g/dl (31.0-35.0); Mean Corpuscular Hemoglobin 30.7 pg (27.0-33.0); Mean Corpuscular Volume 91.5 fL (80.0-98.0); Mean Platelet Volume 9.3 fL (9.4-12.3); Monocytes Absolute Auto 0.6 X10*3/uL (0.1-1.2); Monocytes Percent Auto 14.4 % (2-11); Neutrophils Absolute Auto 1.9 x10*3/uL (2.0-8.3); Neutrophils Percent Auto 49.7 % (45-73); Platelet Count 232 X10*3/uL (160-400); Red Blood Count 4.37 X10*6/uL (4.20-5.50); Red Cell Distribution Width 12.4 % (11.0-16.0); White Blood Count 3.8 X10*3/uL (4.8-10.8)
[2023-05-20 13:51] LABS: Prothrombin Time 12.3 SEC (11.1-13.3)
[2023-05-20 13:57] LABS: COVID-19 Test Negative (Negative); IDNOW Serial# 16C4AD1C; IDNOW Serial# 55D5AD1C
[2023-05-20 13:58] LABS: Influenza A Positive (Negative); Influenza B2 Negative (Negative)
[2023-05-20 14:13] LABS: Alanine Aminotransferase 28 U/L (0-31); Albumin Level 4.2 g/dL (3.5-5.0); Alkaline Phosphatase 46 U/L (39-117); Anion Gap 10 (12-20); Aspartate Amino Transferase 21 U/L (5-31); Bilirubin Total 0.2 mg/dL (0.0-1.0); Blood Urea Nitrogen 10 mg/dL (9-16); Calcium 9.1 mg/dL (8.4-10.2); Carbon Dioxide 27 mmol/L (22-29); Chloride 108 mmol/L (96-108); Estimated Glomerular Filt Rate > 60; Glucose Random 95 mg/dL (60-115); Potassium 3.6 mmol/L (3.3-5.1); Sodium 141 mmol/L (135-145); Total Protein 7.1 g/dL (6.5-8.0)
[2023-05-20 14:15] LABS: HCG Quantitative < 2 mIU/mL; Troponin-I High Sensitivity < 2.7 ng/L (<3.5-17.0)
== END 2023-05-20 15:35 | disposition home or self-care (01) ==
LOC: HO.ED 15:34
PROVIDERS: Registered Nurse Emergency; Emergency Provider Student in an Organized Health Care Education/Training Program
DX: J10.1 Influenza due to other identified influenza virus with other respiratory manifestations (principal); R06.02 Shortness of breath; Z11.52 Encounter for screening for COVID-19
CPT/HCPCS: 71046; 80053; 84484; 84702; 85025; 85610; 87502; 87635; 93005; 99283

== ENCOUNTER → 2023-05-20 13:03 | Outpatient (BNV) | payer OTHER, SELFPAY | PROVIDERS: Emergency Provider Student in an Organized Health Care Education/Training Program; Visit Provider Internal Medicine Cardiovascular Disease | DX: R07.9 Chest pain, unspecified (principal) | CPT/HCPCS: 93010 ==

== ENCOUNTER → 2023-10-09 08:30 | Outpatient (BNV) | payer OTHER, SELFPAY | PROVIDERS: Visit Provider Psychiatry & Neurology Psychiatry | DX: F33.41 Major depressive disorder, recurrent, in partial remission (principal); F43.10 Post-traumatic stress disorder, unspecified; F90.9 Attention-deficit hyperactivity disorder, unspecified type | CPT/HCPCS: 90837; 99213; 99214; 99499 ==

== ENCOUNTER 2023-10-23 08:45 | Outpatient (RCR) | payer OTHER, SELFPAY ==
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
--- NOTE | 2023-10-10 14:54 | HO.PHP ---
PHP staff member was approached by Lial stating that she is not feeling well due to her tooth bothering her, which is making he nauseous. Lila reported no concerns around SI, plan or intent and will be in attendance to program tomorrow.
--- NOTE | 2023-10-11 15:29 | HO.PHP ---
Pt called out of programming today due to an emergency dental appointment. Pt stated she is safe, no safety concerns.
--- NOTE | 2023-10-12 15:10 | HO.PHP ---
Client's case has been opened and reviewed in treatment team.
--- NOTE | 2023-10-16 14:37 | HO.PHP ---
PHP staff member faxed the referral over for to [facility] for OP therapy. PHP staff member is awaiting a scheduled date and time for an appointment.
--- NOTE | 2023-10-17 06:21 | HO.PHP ---
PHP staff member received a voicemail from [facility] through [facility], in which her next scheduled appointment is October 26, 2023 at 10 AM with Sariah Corley at the [address] [place] [address] location in [place], [place].
--- NOTE | 2023-10-17 10:18 | P.PNPSP_ITS ---
Subjective Subjective Date of Service: 10/17/23 Reason For Visit: MDD Interim History: pt reports the guanfacine seems to help her ADHD symptoms; she is not sure the gabapentin or guanfacine is helping her at night terrors but she would like to continue them; she does have some limb movement upon sleep initiation that makes her anxious; she also reports inreased sugar cravings; we talked about trying magnesium for muscle twitching and sugar cravings; she is maintaining abstinence; no SI or HI ; Medication Compliance: Yes Side effects from medications: No Attending Groups: Yes Review of Systems Acute medical concerns: No Medical Review of Systems: unchanged Mental Status Exam Mental Status Exam Patient Appearance: Well Grooomed and Appropriate Patient Orientation: Person, Place, Time and Situation Level of Consciousness: Awake Patient Behavior: Appropriate and Cooperative Mood Description: Anxious Affect Description: Anxious Patient Cognition Impaired: No Ability to Follow Directions: Good Speech Pattern: Clear and Appropriate Memory Description: Intact Hallucinations: None Delusions: Not Present Thought Process: Intact and Goal Oriented Thought Content: positive for Intact and positive for Goal Oriented Judgement: Good Assessment & Plan Assessment & Plan (1) MDD (major depressive disorder), recurrent, in partial remission: Status: Acute Code(s): F33.41 - Major depressive disorder, recurrent, in partial remission (2) PTSD (post-traumatic stress disorder): Status: Acute Code(s): F43.10 - Post-traumatic stress disorder, unspecified (3) ADHD: Qualifiers: Attention deficit-hyperactivity disorder type: unspecified Qualified Code(s): F90.9 - Attention-deficit hyperactivity disorder, unspecified type Status: Acute Code(s): F90.9 - Attention-deficit hyperactivity disorder, unspecified type Plan continue medications as is effexor gabapentin vyvanse guanfacine er ekg ordered fro QTC prologation start magnesium glycinate 100mg take one at bedtime x 4 days then can add 2 at bedtime x 4 night s then can start one pepper ma and two at bedtime daily Patient educated on: diagnosis, medication risk/benefits and therapeutic strategies Informed Consent: understands and further education needed Reason for contiued partial hosp. stay Substantial Risk for: harm to self and inability to function Certification I certify that partial hospital treatment is medically necessary due to the symptoms and problems resulting from the patient's mental illness and the failure to treat the patient at the partial hospital level of care would likely result in the patient requiring inpatient psychiatric care which could not be prevented at a less intensive level of care. Total time managing care of this patient today __30__ minutes. Discharge Plan Discharge Attending provider: Megan Beatty Medications: New guanfacine 1 mg tablet extended release 24 hr 1 mg PO QPM Qty: 14 0RF gabapentin 300 mg capsule 300 - 600 mg PO BEDTIME PRN (Reason: sleep, anxiety) Qty: 20 0RF Mag Glycinate 100 mg tablet See Rx Instructions .ROUTE .COMPLEX Qty: 90 1RF Rx Instructions: 100 mg orally take one tablet in am and two tablets at night No Action Vivitrol 380 mg Suspension,Extended Rel Recon 380 mg IM QMONTH lisdexamfetamine [Vyvanse] 20 mg capsule 20 mg PO QPM lisdexamfetamine [Vyvanse] 40 mg capsule 40 mg PO QAM venlafaxine [Effexor XR] 150 mg Capsule,Extended Release 24hr 150 mg PO DAILY Stand Alone Forms: Patient Portal Discharge page Print Language: Kinyarwanda
--- NOTE | 2023-10-17 15:37 | HO.PHP ---
Pt left programming early today, at 1:00, 10/17/23 due to a toothache. Pt reports she is safe and will return tomorrow.
--- NOTE | 2023-10-20 08:40 | PC.NURSE ---
Lila Clifford called and left a message stating she is not feeling well thus will not be in today. Stated she will be here on Monday. I called Lila and left a voicemail message to call me back to f/u.
[2023-10-23 11:31] VITALS: BP 102/74; PULSE 67
--- NOTE | 2023-10-23 12:04 | PC.NURSE ---
New PCP appointment at [address] Office Number [phone]. With Dr. christal Hinton.
--- NOTE | 2023-10-23 22:36 | HO.PHPPROGNO ---
Subjective Subjective Date of Service: 10/23/23 Reason For Visit: MDD Interim History: It's been helpful . Patient seen for follow-up, anticipating discharge at the end of program today.? Reports no acute issues or concerns. Medication compliant, medications well-tolerated. Denies any adverse effects.?Meds including the guanfacine have been helpful for ADHD symptoms, and especially with mitigating the body jitters, heart palpitations with stimulants. Notices that it is particularly helpful with anxious thoughts, It makes me feels calmer, I can think clearer . Has not yet started on magnesium, just picked it up. Still experiencing jerks in her sleep, plans to start magnesium for this. Mood is stable.? Denies any hopelessness or SI. Denies thoughts of harming self or others at this time. Denies any aggressive ideation or HI. Denies any paranoia or AH or VH. Sleep, appetite, energy stable. Medication Compliance: Yes Side effects from medications: No Attending Groups: Yes Review of Systems Acute medical concerns: No Mental Status Exam Mental Status Exam Narrative: Alert, oriented, in no acute distress. Calm, cooperative. Mood stable, affect appropriate. Speech normal. Thought process linear, coherent, more goal-directed. Thought content related to stressors, future-oriented, denies any helplessness, hopelessness or SI.? No aggressive ideation or HI. No paranoia or delusional content elicited. No evidence of psychosis. Insight and judgment fair-good. Diagnostics Vital Signs (24Hr): Vital Signs - 24 hr 10/23/23 11:31 Pulse Rate 67 Blood Pressure 102/74 Assessment & Plan Assessment & Plan (1) MDD (major depressive disorder), recurrent, in partial remission: Status: Acute Code(s): F33.41 - Major depressive disorder, recurrent, in partial remission (2) PTSD (post-traumatic stress disorder): Status: Acute Code(s): F43.10 - Post-traumatic stress disorder, unspecified (3) ADHD: Qualifiers: Attention deficit-hyperactivity disorder type: unspecified Qualified Code(s): F90.9 - Attention-deficit hyperactivity disorder, unspecified type Status: Acute Code(s): F90.9 - Attention-deficit hyperactivity disorder, unspecified type Plan Discharge from [facility] Continue Vyvanse 60 mg qd (take 2 days/wk off to avoid building toelrance) continue guanfacine 1 mg BID in AM and late afternoon continue gabapentin 600 mg qhs PRN sleep continue Effexor XR 150 mg qhs continue Vivitrol monthly IM Refills sent to pharmacy Will defer further medication management to outpatient provider *Safety plan reviewed *Discharge diagnoses, treatment course, discharge plan have been reviewed with patient (including medication regime, medication management, potential side effects) as well as treatment rationale were also revisited *Discharge paperwork signed and given to patient, copy sent for scanning to chart Patient educated on: diagnosis, medication risk/benefits and substance abuse Informed Consent: understands Reason for contiued partial hosp. stay Substantial Risk for: stable for discharge Certification I certify that partial hospital treatment is medically necessary due to the symptoms and problems resulting from the patient's mental illness and the failure to treat the patient at the partial hospital level of care would likely result in the patient requiring inpatient psychiatric care which could not be prevented at a less intensive level of care. Total time managing care of this patient today __30__ minutes. Discharge Plan Discharge Attending provider: Megan Beatty Additional Instructions: New PCP appointment at [address] Office Number [phone]. With Dr. christal Hinton. Medications: New Mag Glycinate 100 mg tablet See Rx Instructions .ROUTE .COMPLEX Qty: 90 1RF Rx Instructions: 100 mg orally take one tablet in am and two tablets at night lisdexamfetamine 60 mg capsule 60 mg PO QAM Qty: 30 0RF Rx Instructions: Partial Fill upon patient request. Continued Vivitrol 380 mg Suspension,Extended Rel Recon 380 mg IM QMONTH venlafaxine [Effexor XR] 150 mg Capsule,Extended Release 24hr 150 mg PO DAILY 30 Days Qty: 30 0RF gabapentin 300 mg capsule 300 - 600 mg PO BEDTIME PRN (Reason: sleep, anxiety) Qty: 30 0RF Changed guanfacine 1 mg tablet extended release 24 hr 1 - 2 mg PO QPM Qty: 30 1RF Discontinued lisdexamfetamine [Vyvanse] 20 mg capsule 20 mg PO QPM lisdexamfetamine [Vyvanse] 40 mg capsule 40 mg PO QAM Stand Alone Forms: Patient Portal Discharge page Patient Education: Guanfacine (By mouth), Depression (DC) Print Language: Greenlandic Telehealth Telehealth Telehealth Platform: Other (please specify) ([employer]) Location of provider rendering services: other (private office) Location of patient: other ([facility]) Patient Identification confirmed using: Name, : Yes Telehealth method: video Patient verbally consented to treatment: Yes
--- NOTE | 2023-11-01 22:43 | PM.EVENT ---
Event Note Date of Service: 11/01/23 Event Note: Patient called requesting refills on venlafaxine as well as Vyvanse 60 caps, since she was unable to fill chewable Vyvanse (insurance will not cover). Scripts efaxed to pharmacy. Time Spent With Patient Time: Total time managing care of this patient today ____ minutes.
--- NOTE | 2023-11-07 22:29 | PM.EVENT ---
Event Note Date of Service: 11/08/23 Event Note: Refill request from patient for guanfacine and gabapentin. Both rxs efaxed to pharmacy. Time Spent With Patient Time: Total time managing care of this patient today ____ minutes.
== END 2023-10-23 23:59 | disposition home or self-care (01) ==
LOC: HO.PHPA 08:45
PROVIDERS: Visit Provider Psychiatry & Neurology Psychiatry
DX: F33.41 Major depressive disorder, recurrent, in partial remission (principal); F41.3 Other mixed anxiety disorders; F90.9 Attention-deficit hyperactivity disorder, unspecified type; F43.10 Post-traumatic stress disorder, unspecified; F10.90 Alcohol use, unspecified, uncomplicated; Z79.899 Other long term (current) drug therapy
CPT/HCPCS: 90791; 90853